=== PATIENT | female | born 1960 | race Caucasian/White ===

== ENCOUNTER 2019-11-09 15:01 | Inpatient (IN) | payer MEDICAID ==
[~2019-11-09] VITALS: Ht 152.4 cm; Wt 49.9 kg
[2019-11-09 15:01] VITALS: BP_SYST 110
--- NOTE | 2019-11-09 15:01 | NUR ---
Placed in room 07 . Placed on school bus monitor, blood pressure machine and pulse oximeter. To gown for exam. Side rails up.
--- NOTE | 2019-11-09 15:03 | NUR ---
Pt AAOx4 presents to ED via wheelchair into ED c/o weakness, abd pain, nausea, 4 episodes of vomiting x 1 hour prior to arrival. Pt able to follow commands, but is very weak. 1 episode of vomiting during assessment. Pt had eggs and onions prior to symptoms. Skin dry and warm, breathing even and unlabored. No other injuries/complaints per pt/noted. Will continue to monitor.
--- NOTE | 2019-11-09 15:09 | NUR ---
ER Dr. Booth at bedside examining patient.
[2019-11-09] MEDS ORDERED: NACL 0.9% 1,000 ML IV ONE (15:12)
[2019-11-09] MEDS ORDERED: ONDANSETRON HCL 4 MG/2 ML VIAL IVP ONE (15:15)
--- NOTE | 2019-11-09 15:39 | NUR ---
Pt taken to radiology via gurney in stable condition
[2019-11-09 15:44] LABS: HEMOGLOBIN 14.5 g/dL (12.0-16.0)
--- NOTE | 2019-11-09 15:45 | NUR ---
Pt returned from radiology via [place] in stable condition
[2019-11-09 15:50] LABS: HEMATOCRIT 43.2 % (36-48); MEAN CORPUSCULAR HEMOGLOBIN 30 pg (27-31); MEAN CORPUSCULAR HGB CONC 34 % (32-36); MEAN CORPUSCULAR VOLUME 89 fL (79.0-98.0); PLATELET COUNT (AUTO) 292 K/uL (130-430); RED BLOOD CELL COUNT(AUTO) 4.84 MIL/uL (4.2-6.2); RED CELL DISTRIBUTION WIDTH 12.1 % (9.0-15.0)
[2019-11-09 15:55] LABS: WHITE BLOOD COUNT (AUTO) 32.6 K/uL (4.8-10.8)
[2019-11-09] MEDS ORDERED: PIPERACILLIN/TAZO 3.375 GM in NS 50 ML IV ONE (16:00)
[2019-11-09 16:07] LABS: INR 0.9 (0.8-1.2); PROTHROMBIN TIME 9.4 SECS (9.5-12.5)
[2019-11-09 16:26] LABS: ANION GAP 12 (5-15); CALCIUM 9.5 mg/dL (8.4-11.0); CHLORIDE 98 mmol/L (98-107); CREATININE 0.94 mg/dL (0.55-1.30); GLUCOSE 215 mg/dL (70-99); SODIUM SERUM 135 mmol/L (136-145); UREA NITROGEN, BLOOD 22 mg/dL (8-21)
[2019-11-09 16:29] LABS: BILIRUBIN,URINE NEGATIVE (NEGATIVE); BLOOD, URINE 1+ (NEGATIVE); COLOR,URINE YELLOW (YELLOW); GLUCOSE,URINE NEGATIVE (NEGATIVE); KETONES,URINE 1+ (NEGATIVE); LEUKOCYTE ESTERASE ,URINE TRACE (NEGATIVE); NITRITE, URINE POSITIVE (NEGATIVE); PH,URINE 6.5 (5.0-8.0); PROTEIN URINE 2+ (NEGATIVE)
[2019-11-09] MEDS ORDERED: NACL 0.9% 2,000 ML IV ONE (16:30)
[2019-11-09 16:33] LABS: GFR AFRICAN AMERICAN 78 mL/min (>90); POTASSIUM 2.9 mmol/L (3.5-5.1)
[2019-11-09 16:41] LABS: ACETAMINOPHEN < 1 ug/mL (1-30); ALANINE AMINOTRANSFERASE 170 U/L (12-78); ALBUMIN 4.1 g/dL (3.4-4.8); ASPARTATE AMINOTRANSFERASE 305 U/L (10-37)
[2019-11-09 16:42] LABS: ALCOHOL, BLOOD < 3 mg/dL (<10)
[2019-11-09] MEDS ORDERED: MORPHINE 4 MG/ML INJ. SYRINGE IVP ONE (16:45)
[2019-11-09] MEDS ORDERED: KCL 40 mEq in 100 mL (PREMIX) 100 ML IV ONE (16:45)
[2019-11-09] MEDS ORDERED: PIPERACILLIN/TAZOBACTAM 3.375 GM/VIAL (ZOSYN) IV ONE (16:49)
[2019-11-09 16:57] LABS: BARBITURATE, URINE NEGATIVE (NEG <=200); BENZODIAZEPINE, URINE NEGATIVE (NEG <=150); CANNABINOID, URINE NEGATIVE (NEG <=50); COCAINE, URINE NEGATIVE (NEG <=150); METHAMPHETAMINES SCREEN,URINE NEGATIVE (NEG <=500); OPIATE, URINE NEGATIVE (NEG <=100); PHENCYCLIDINE SCREEN,URINE NEGATIVE (NEG <=25); UR TRICYCLIC ANTIDEPRESSANTS NEGATIVE (NEG <=300); URINE AMPHETAMINE NEGATIVE (NEG <=500); URINE METHADONE NEGATIVE (NEG <=200); URINE OXYCODONE SCREEN NEGATIVE (NEG <=100); URINE PROPOXYPHENE SCREEN NEGATIVE (NEG <=300)
--- NOTE | 2019-11-09 17:00 | NUR ---
Dr. Zhu notified Potassium level 2.9. Admit order changed to Telemetry.
[2019-11-09 17:05] LABS: AMYLASE 4576 U/L (0-100)
[2019-11-09 17:07] LABS: LIPASE > 45000 U/L (73-393)
--- NOTE | 2019-11-09 17:12 | NUR ---
40 mEq KCL unavailable in ED pyxis. Dr. Booth notified. Ordered changed to 20mEq KCL premix at 50mL/hr x 2.
[2019-11-09] MEDS ORDERED: KCL 20 mEq in 100 mL (PREMIX) 100 ML IV ONE (17:15)
[2019-11-09] MEDS ORDERED: KCL 20 mEq in 100 mL (PREMIX) 200 ML IV ONE (17:20)
[2019-11-09] MEDS ORDERED: fentaNYL CITRATE/PF 100 MCG/2 ML AMP IVP ONE (17:30)
[2019-11-09 17:37] LABS: BAND % (MANUAL) 4 % (0-6); BASOPHILS % (MANUAL) 0 % (0-2); EOSINOPHILS % (MANUAL) 0 % (0-7); LYMPHOCYTES % (MANUAL) 3 % (20-46); MONOCYTES % (MANUAL) 2 % (0-11)
[2019-11-09 17:44] LABS: CLARITY/URINE HAZY (CLEAR)
[2019-11-09 17:46] LABS: BACTERIA,URINE MANY /HPF (None Seen); RBC,URINE 0-3 /HPF (0-3)
--- NOTE | 2019-11-09 17:48 | NUR ---
CONSULTATION PAGED/CALLED Reason for Consultation: [] ACUTE PANCREATITIS Person Who was Notified: [] MONE Consulting Physician: [] DR GARCIA Hook Tender Specialty: [] GEN SURGEON Ordering Physician: [] DR Danisha HARRIS
--- NOTE | 2019-11-09 17:52 | NUR ---
CONSULTATION PAGED/CALLED Reason for Consultation: [] ACUTE PANCREATITIS Person Who was Notified: [] MONE Consulting Physician: [] DR Nitza PATTERSON Javascript Web Developer Specialty: [] GI Ordering Physician: [] DR Danisha HARRIS
--- NOTE | 2019-11-09 18:03 | NUR ---
ADMISSION NOTE Received patient from ER via pablo, received report from MARLENE SUN. Patient admitted with diagnosis of ACUTE PANCREATITIS. Patient oriented to hospital routine, call light, toileting and safety-patient verbalized understanding.
--- NOTE | 2019-11-09 18:10 | NUR ---
Patient will be admitted to care of Dr. Zhu. Admitted to Telemetry unit. Will go to room 103A. Belongings list completed. Complete and up to date summary report printed. SBAR report to be given at bedside with opportunity for questions.
[2019-11-09] MEDS ORDERED: ZOLPIDEM TARTRATE 5 MG TABLET PO PRN (18:15)
[2019-11-09] MEDS ORDERED: DOCUSATE SODIUM 100 MG CAPSULE PO PRN (18:15)
[2019-11-09] MEDS ORDERED: MORPHINE 2 MG/ML INJ. SYRINGE IVP PRN ×2 (18:15)
[2019-11-09] MEDS ORDERED: MAGNESIUM SULFATE 50 ML IV PRN (18:15)
[2019-11-09] MEDS ORDERED: LORazepam 2 MG/ML VIAL IVP PRN (18:15)
[2019-11-09] MEDS ORDERED: ACETAMINOPHEN 325 MG TABLET PO PRN (18:15)
[2019-11-09] MEDS ORDERED: MUPIROCIN 2% TOPICAL OINTMENT 22 GM NS PRN (18:15)
[2019-11-09] MEDS: PIPERACILLIN/TAZO 3.375/DEX-IS 50 ML IV SCH (18:15)
[2019-11-09 18:18] VITALS: BP_SYST 122
--- NOTE | 2019-11-09 18:21 | NUR ---
CONSULTATION PAGED/CALLED Reason for Consultation: [] SEPSIS Person Who was Notified: [] MONE Consulting Physician: [] DR KITCHEN Apprentice Instrument Technician Specialty: [] ID Ordering Physician: [] DR Danisha HARRIS
[2019-11-09] MEDS ORDERED: DEXTROSE 50% JECT 50 ML DISP.SYRIN IVP PRN (18:30)
--- NOTE | 2019-11-09 18:30 | NUR ---
Pain Patient with severe abdominal pain , Dr. Zhu , Dilaudid 2 mg IV push given slowly , with IV fluid infusing well , safety/fall precaution initiated , will monitor.
[2019-11-09] MEDS ORDERED: HYDROmorphone 2 MG/ML VIAL ONE (18:47)
[2019-11-09] MEDS ORDERED: ENAL10TA PO (18:58)
[2019-11-09] MEDS ORDERED: OMEP20CA11 PO (18:58)
[2019-11-09 19:00] VITALS: BP_SYST 148
--- NOTE | 2019-11-09 19:15 | NUR ---
change of shift.pt.is new admit;11/09/19.pt.presents pancreatitis/cholelithiasis per studies;ct-abd/pelvis.pt.presented k+level low. k+rider;40meq administration is in progress.general status stable.respiratory status stable;unlabored.language barrier extant;urdu pt's primary language;i am to attend to the pt;urdu.call light/telephone w/in reach of the pt.
[2019-11-09 20:00] VITALS: BP_SYST 148
--- NOTE | 2019-11-09 20:30 | NUR ---
i have assessed the blood glucose;value:264mg/dl.the pt's had inquired for the reason to assess the blood glucose; pt.presents no prior hx ;diabetes. it had been noted the per the chemistry that the blood glucose is elevated;nsg to continue to assess the blood glucose:ac/hs. Addendum: 11/10/19 at 0355 by Lonnie Modi RN ;surgeon present.has conferred w/the pt's /dtr.pt is possible surgery pt.but noted the elevated enzymes levels; pancreatitis; provided the indication to hold surgery:2/t pancreatitis;elevated wbc,amylase.liapase levels.must wait for the inflammation to resolve.i have provided further indication to translation;zambian. understanding satisfactory.
--- NOTE | 2019-11-09 21:00 | NUR ---
2100pmedication administered.i have provided the literature;indication heparin;family reviewed the literature provider the consent to administered the heparin.i have assisted the pt.to the bsc.i have measured,cleaned, placed the bsc w/in access of the pt.
[2019-11-09] MEDS: D5NS 1,000 ML IV SCH (21:43)
[2019-11-09] MEDS: HEPARIN SODIUM,PORCINE 5000 UNITS/ML VIAL SUBCUT SCH (21:45)
--- NOTE | 2019-11-09 22:00 | NUR ---
pt.assessed.pt.presents quiescent affect;calm,somnolent.iv aces intact patent iv fluids infusing.i have initiated the administration of the maintance iv fluids.general status stable.respiratory status stable;unlabored.pt.capable to reposition self.call light/telephone placed w/in reach of the pt.
[2019-11-09] MEDS: INSULIN LISPRO SLIDING SCALE 100 UNITS/ML VIAL (humaLOG) SUBCUT PRN (22:06)
--- NOTE | 2019-11-10 | NUR ---
pt.assessed.v/s assessed;values w/in normal limits.no c/o pain,nausea.pt.capable to reposition self.i have administered the initial zosyn;abx;ivpb midnight dose.general status stable.respiratory status stable;unlabored.call light/telephone w/in reach of the pt.
[2019-11-10] MEDS ORDERED: PIPERACILLIN/TAZOBACTAM 3.375 GM/VIAL (ZOSYN) IV ONE (00:25)
[2019-11-10 00:34] VITALS: BP_SYST 131
[2019-11-10] MEDS: PIPERACILLIN/TAZO 3.375/DEX-IS 50 ML IV SCH ×5 (00:44→23:58)
--- NOTE | 2019-11-10 02:00 | NUR ---
pt.assessed.pt.assessed for cleanliness.pt.capable to reposition self.pt.presents quiescent affect;calm,somnolent.iv fluids infusing. general status stable. respiratory status stable;unlabored.call light/telephone placed w/in reach of the pt.
--- NOTE | 2019-11-10 04:00 | NUR ---
pt.assessed pt.had requested medication pain,nausea.i have administered dilaudid;2mg ivp.to re-assess the efficacy of the pain medication per pain mgx protocol.i have administered zofran;4mg ivp;to re-assess the efficacy of the zofran. no additional requests@this hour. general status stable.respiratory status stable;unaloboredo2-sat%=96%.call light/telephone placed w/in reach of the pt.
[2019-11-10] MEDS: HYDROmorphone 2 MG/ML VIAL IVP PRN ×2 (04:01→13:35)
[2019-11-10] MEDS: ONDANSETRON HCL 4 MG/2 ML VIAL IVP PRN (04:02)
[2019-11-10] MEDS: INSULIN LISPRO SLIDING SCALE 100 UNITS/ML VIAL (humaLOG) SUBCUT PRN ×4 (05:55→22:05)
--- NOTE | 2019-11-10 06:44 | NUR ---
pt.assessed.blood glucose assessed;value:232mg/dl.i have administered:insulin:regular:4-units.i have administered zosyn:abx;ivpb:0600a dose.no c/o pian,nausea.call light/telpher placed w/in reach of the pt.
--- NOTE | 2019-11-10 06:50 | NUR ---
Nutrition Update Tyler Scale 17 noted. Pt admitted for Acute Pancreatitis Diet: NPO BMI: 21.7 kg/m2 RD to follow per nutrition care standards.
[2019-11-10] MEDS: D5NS 1,000 ML IV SCH ×2 (07:00→09:59)
--- NOTE | 2019-11-10 07:40 | NUR ---
OPENING NOTE Patient resting in the bed with eye closed. No acute distress. Skin warm and dry to touch. IV intact to left hand, no redness, no swelling, no drainage. On D5 NS at 100ml/hr, infusing well. Safety measure maintained. Call light within reached. Bed locked in low position, side rails up, bed alarm on. Will continue to monitor.
[2019-11-10 07:45] VITALS: BP_SYST 123
[2019-11-10 07:49] LABS: HEMATOCRIT 45.6 % (36-48); HEMOGLOBIN 15.4 g/dL (12.0-16.0); LYMPHOCYTES # (AUTO) 1.5 K/uL (1.0-5.5); LYMPHOCYTES % (AUTO) 7.1 % (20.5-51.5); MEAN CORPUSCULAR HEMOGLOBIN 30 pg (27-31); MEAN CORPUSCULAR HGB CONC 34 % (32-36); MEAN CORPUSCULAR VOLUME 89 fL (79.0-98.0); MONOCYTES # (AUTO) 1.4 K/uL (0.0-1.0); MONOCYTES % (AUTO) 6.9 % (1.7-9.3); NEUTROPHILS # (AUTO) 17.9 K/uL (1.8-7.7); PLATELET COUNT (AUTO) 250 K/uL (130-430); RED BLOOD CELL COUNT(AUTO) 5.11 MIL/uL (4.2-6.2); RED CELL DISTRIBUTION WIDTH 12.7 % (9.0-15.0); WHITE BLOOD COUNT (AUTO) 20.9 K/uL (4.8-10.8)
[2019-11-10 08:10] LABS: ALBUMIN 2.9 g/dL (3.4-4.8); BILIRUBIN,DIRECT 0.8 mg/dL (0.0-0.3); CALCIUM 8.2 mg/dL (8.4-11.0); CREATININE 0.95 mg/dL (0.55-1.30); POTASSIUM 4.6 mmol/L (3.5-5.1); TOTAL BILIRUBIN 1.6 mg/dL (0.0-1.0)
--- NOTE | 2019-11-10 09:06 | NUR ---
SEEN AND EXAMINED BY DALI MELGAR Per Dr. Dowd continue to keep the patient NPO, ice chip is okay.
--- NOTE | 2019-11-10 09:47 | NUR ---
SEEN AND EXAMINED BY DR. HARRIS [facility]. Per Dr. Harris, patient is diabetic, needs to give insulin per sliding scale even the patient is NPO.
[2019-11-10] MEDS: HEPARIN SODIUM,PORCINE 5000 UNITS/ML VIAL SUBCUT SCH ×2 (09:52→21:55)
--- NOTE | 2019-11-10 11:19 | NUR ---
OFF UNIT TO MRI, MRCP VIA WHEELCHAIR IN STABLE CONDITION.
--- NOTE | 2019-11-10 12:18 | NUR ---
BACK TO UNIT FROM RADIOLOGY DEPARTMENT IN STABLE CONDITION VIA WHEELCHAIR.
[2019-11-10 12:25] VITALS: BP_SYST 112
--- NOTE | 2019-11-10 12:27 | NUR ---
SEEN AND EXAMINED BY NICOL BOB.
[2019-11-10] MEDS: GENTAMICIN 100 mg/50 mL NS 50 ML IV SCH ×2 (13:27→20:03)
--- NOTE | 2019-11-10 14:25 | NUR ---
ROUND Patient resting in the bed with eye closed. No acute distress. On O2 2L/min via NC. IV intact, IVF infusing well. Daughter at bedside. Safety measure maintained. Call light within reached. Bed locked in low position, side rails up. Continue to monitor.
[2019-11-10 16:00] VITALS: BP_SYST 126
--- NOTE | 2019-11-10 16:33 | NUR ---
BATHROOM Ambulated to bathroom with assistance. No acute distress. Assisted back to bed. Continue on O2 via NC. Safety measure maintained. Call light within reached. Bed locked in low position, side rails up. Continue to monitor.
--- NOTE | 2019-11-10 18:50 | NUR ---
CLOSING NOTE Patient resting in the bed. No acute distress. No c/o pain. Skin warm and dry to touch. IV intact to left hand, no redness, no swelling, no drainage. On D5 NS at 100ml/hr, infusing well. All needs met. Family at bedside. Safety measure maintained. Call light within reached. Bed locked in low position, side rails up, bed alarm on. Will endorse to night nurse.
[2019-11-10] MEDS: MORPHINE 2 MG/ML INJ. SYRINGE IVP PRN (19:59)
[2019-11-10 20:00] VITALS: BP_SYST 128
--- NOTE | 2019-11-10 20:00 | NUR ---
NOTES: pt. medicated with Morphine IV for c/o abdominal pain. no nausea nor vomiting noted. family at bedside. pt. repositioned self for comfort. IVF infusing via rt. hand. pt. speaks Latvian with very little vietnamese. moves all extremities well. color television console monitor shows sinus tach. another IV site on left hand, IV lock.uses BSC. instructed to call nurse for help.
--- NOTE | 2019-11-10 21:00 | NUR ---
NOTES; pt. family still at bedside. pt. resting, dozing on and off.
--- NOTE | 2019-11-10 22:00 | NUR ---
NOTES: BS checked 168 with sliding scale coverage. pt. needs attended.
[2019-11-10] MEDS ORDERED: LR 500 ML IV ONE (22:15)
[2019-11-11 00:20] VITALS: BP_SYST 128
[2019-11-11] MEDS: HYDROmorphone 2 MG/ML VIAL IVP PRN ×3 (00:20→17:30)
--- NOTE | 2019-11-11 00:20 | NUR ---
NOTES: pt. still awake, c/o abdominal pain , IV Dilaudid pain scale 7/10 given. pt. been turning to her sides. call light within reach. IV LR 500 cc IV x1 infusing per Dr. Dowd. remains sinus tach.
--- NOTE | 2019-11-11 02:30 | NUR ---
NOTes; pt. sleeping at this time. condition observed. remains sinus tach.
[2019-11-11] MEDS: D5NS 1,000 ML IV SCH (03:44)
--- NOTE | 2019-11-11 05:00 | NUR ---
NOTES: been sleeping, no pain noted at this time. IVF infusing. continue to monitor.
[2019-11-11] MEDS: PIPERACILLIN/TAZO 3.375/DEX-IS 50 ML IV SCH ×4 (06:06→23:51)
--- NOTE | 2019-11-11 06:55 | NUR ---
CLOSING NOTES; pt. awakened. BS checked 169 with sliding scale coverage. IVF continuous.for further care and assistance. call light within [facility].
--- NOTE | 2019-11-11 07:15 | NUR ---
OPENING NOTES PT AWAKE, ALERT, AND ORIENTED. NONLABORED BREATHING NOTED, RECEIVING OXYGEN VIA NASAL CANNULA AT 2LPM. IV LINES INTACT AND PATENT, NO SIGNS OF INFILTRATION NOTED, FLUIDS RUNNING ORDERED PER MD, TOLERATING WELL. PT NPO. HOB ELEVATED. NO ACUTE DISTRESS NOTED. PT DENIES PAIN AT THIS TIME. ALL NEEDS MET. CALL LIGHT IN REACH. BED LOCKED AND IN LOWEST POSITION. FALL AND ASPIRATION PRECAUTIONS IN PLACE. CONTINUE TO MONITOR.
[2019-11-11 07:17] LABS: HEMATOCRIT 38.5 % (36-48); HEMOGLOBIN 12.7 g/dL (12.0-16.0); MEAN CORPUSCULAR HEMOGLOBIN 30 pg (27-31); MEAN CORPUSCULAR HGB CONC 33 % (32-36); MEAN CORPUSCULAR VOLUME 91 fL (79.0-98.0); PLATELET COUNT (AUTO) 190 K/uL (130-430); RED BLOOD CELL COUNT(AUTO) 4.24 MIL/uL (4.2-6.2); RED CELL DISTRIBUTION WIDTH 12.7 % (9.0-15.0)
[2019-11-11 07:25] LABS: CALCIUM 8.3 mg/dL (8.4-11.0); CREATININE 0.81 mg/dL (0.55-1.30); POTASSIUM 4.4 mmol/L (3.5-5.1)
--- NOTE | 2019-11-11 07:38 | NUR ---
CRITICAL LABS RECEIVED CRITICAL LABS. REPORTED TO DR. HARRIS, NO NEW ORDERS RECEIVED, CONTINUE TO MONITOR.
[2019-11-11 08:00] VITALS: BP_SYST 132
[2019-11-11 08:10] LABS: WHITE BLOOD COUNT (AUTO) 33.9 K/uL (4.8-10.8)
--- NOTE | 2019-11-11 08:10 | NUR ---
CRITICAL LABS RECEIVED CRITICAL LABS, REPORTED TO DR. HARRIS, RECEIVED NO NEW ORDERS. CONTINUE TO MONITOR.
[2019-11-11 08:53] LABS: ATYPICAL LYMPHOCYTES % 0 % (0-0); BAND % (MANUAL) 5 % (0-6); BASOPHILS % (MANUAL) 0 % (0-2); EOSINOPHILS % (MANUAL) 0 % (0-7); LYMPHOCYTES % (MANUAL) 4 % (20-46); MONOCYTES % (MANUAL) 7 % (0-11)
--- NOTE | 2019-11-11 10:00 | NUR ---
SEEN BY DR. PATTERSON AT BEDSIDE.
[2019-11-11] MEDS: GENTAMICIN 100 mg/50 mL NS 50 ML IV SCH (10:11)
[2019-11-11] MEDS: HEPARIN SODIUM,PORCINE 5000 UNITS/ML VIAL SUBCUT SCH ×2 (10:24→21:24)
--- NOTE | 2019-11-11 10:24 | NUR ---
ROUTINE MEDS ROUTINE MEDS ADMINISTERED ORDERED PER MD, EDUCATION GIVEN, TOLERATED WELL. NO ACUTE DISTRESS NOTED. ALL NEEDS MET. CALL LIGHT IN REACH. FALL AND ASPIRATION PRECAUTIONS IN PLACE. CONTINUE TO MONITOR.
[2019-11-11] MEDS: LR 1,000 ML IV SCH ×3 (10:50→23:53)
--- NOTE | 2019-11-11 12:00 | NUR ---
ROUNDS PT RESTING IN BED, CHEST RISE AND FALL NOTED. NONLABORED BREATHING NOTED, RECEIVING OXYGEN ORDERED PER MD VIA NASAL CANNULA. ALL NEEDS MET. CALL LIGHT IN REACH. CONTINUE TO MONITOR.
--- NOTE | 2019-11-11 12:10 | NUR ---
SPOKE TO DR. PATTERSON REGARDING MRCP, NO NEW ORDERS RECEIVED. F/U WITH DR. GARCIA, WILL CONTACT.
[2019-11-11 12:52] VITALS: BP_SYST 132
[2019-11-11 13:00] VITALS: BP_SYST 130
--- NOTE | 2019-11-11 14:00 | NUR ---
ASSISTED PT TO BEDSIDE COMMODE, TOLERATED WELL. NO ACUTE DISTRESS NOTED. ALL NEEDS MET. CALL LIGHT IN REACH. CONTINUE TO MONITOR.
--- NOTE | 2019-11-11 16:00 | NUR ---
ROUNDS PT AWAKE, ALERT, AND ORIENTED. NO ACUTE DISTRESS NOTED. ALL NEEDS MET. CALL LIGHT IN REACH. HOB ELEVATED. CONTINUE TO MONITOR.
[2019-11-11 17:12] VITALS: BP_SYST 146
--- NOTE | 2019-11-11 17:32 | NUR ---
ACCUCHECK ACCUCHECK DONE. DAUGHTER AT BEDSIDE. EDUCATION GIVEN, TOLERATED WELL. NO ACUTE DISTRESS NOTED. RESULT 113 MG/DL. ALL NEEDS MET. CALL LIGHT IN REACH. CONTINUE TO MONITOR.
--- NOTE | 2019-11-11 18:41 | NUR ---
CLOSING NOTES PT AWAKE, ALERT, AND ORIENTED. FAMILY AT BEDSIDE. IV LINES INTACT AND PATENT, NO SIGNS OF INFILTRATION NOTED. PT RECEIVING OXYGEN ORDERED PER MD VIA NASAL CANNULA. NO ACUTE DISTRESS NOTED. PT DENIES PAIN AT THIS TIME. ALL NEEDS MET. CALL LIGHT IN REACH. FALL AND ASPIRATION PRECAUTIONS IN PLACE. WILL ENDORSE TO NOC NURSE.
--- NOTE | 2019-11-11 19:20 | NUR ---
CHANGE OF SHIFT; pt. resting when received, family visiting at bedside. IVF infusing. no complaints of pain at this time. call light within reach. HOB elevated. will reassess later.
[2019-11-11 20:00] LABS: ALBUMIN 2.2 g/dL (3.4-4.8); BILIRUBIN,DIRECT 0.4 mg/dL (0.0-0.3); TOTAL BILIRUBIN 1.3 mg/dL (0.0-1.0)
[2019-11-11] MEDS ORDERED: GENTAMICIN 120 mg/ NS 100 mL IVPB IV SCH (20:00)
--- NOTE | 2019-11-11 20:00 | NUR ---
NOTES: VS checked. HR 112. O2 on @ 2l/nc. instructed on deep breathing. still kept NPO except with some ice chips. been using BSC.able to turn to sides and repositioned self. cardiac pattern shows sinus tach.
[2019-11-11 20:15] VITALS: BP_SYST 127
[2019-11-11] MEDS: GENTAMICIN 120 mg/100 mL NS 100 ML IV SCH (20:16)
--- NOTE | 2019-11-11 21:00 | NUR ---
NOTES: BS checked 112. IV antibiotic due infused. pt. needs attended. off O@ rechecked O2 sat 95%, will recheck again later, kept on room air, instructed on deep breathing
[2019-11-11] MEDS: metroNIDAZOLE 500 mg/NS 100 ML IV SCH (21:12)
--- NOTE | 2019-11-11 23:00 | NUR ---
NOTES: been dozing on and off. pt. needs attended. call light within reach.
[2019-11-12] VITALS (7 sets, daily range): BP systolic 125–149
[2019-11-12] MEDS: HYDROmorphone 2 MG/ML VIAL IVP PRN ×4 (00:51→20:36)
--- NOTE | 2019-11-12 00:51 | NUR ---
NOTES: pt. medicated with IV Dilaudid for c/o abdominal pain. repositioned self for comfort.
--- NOTE | 2019-11-12 02:30 | NUR ---
NOTES: noted relief of pain, pt. asleep. condition observed.
[2019-11-12] MEDS: LR 1,000 ML IV SCH (03:56)
--- NOTE | 2019-11-12 04:17 | NUR ---
NOTES: made rounds, pt. still sleeping. continue to monitor. IVF continuous @ 200 cc/hr.
[2019-11-12] MEDS: PIPERACILLIN/TAZO 3.375/DEX-IS 50 ML IV SCH ×4 (05:20→23:36)
--- NOTE | 2019-11-12 05:45 | NUR ---
NOTES: Bs checked 96. no further complaints of pain. IVF continuous @ 200 cc/hr of LR via left forearm. pt. needs attended. on room air, denies any shortness of breath. call light within reach. on fall risk precautions due to weakness.
--- NOTE | 2019-11-12 06:42 | NUR ---
CLOSING NOTES; pt. still asleep. IVF continuous @ 200 cc/hr of LR via left arm. kept NPO. no nausea nor vomiting. cardiac pattern on sinus tach. needs attended. for further care and assistance. will endorse to day shift. on fall risk precautions. call light within reach.
[2019-11-12 07:07] LABS: BASOPHILS % (AUTO) 0.1 % (0.0-2.0); HEMATOCRIT 29.3 % (36-48); LYMPHOCYTES # (AUTO) 1.1 K/uL (1.0-5.5); LYMPHOCYTES % (AUTO) 4.6 % (20.5-51.5); MEAN CORPUSCULAR HEMOGLOBIN 31 pg (27-31); MEAN CORPUSCULAR HGB CONC 34 % (32-36); MEAN CORPUSCULAR VOLUME 90 fL (79.0-98.0); MONOCYTES # (AUTO) 1.8 K/uL (0.0-1.0); MONOCYTES % (AUTO) 7.5 % (1.7-9.3); NEUTROPHILS # (AUTO) 21.5 K/uL (1.8-7.7); NEUTROPHILS % (AUTO) 87.8 % (40.0-70.0); PLATELET COUNT (AUTO) 140 K/uL (130-430); RED BLOOD CELL COUNT(AUTO) 3.27 MIL/uL (4.2-6.2); RED CELL DISTRIBUTION WIDTH 12.7 % (9.0-15.0); WHITE BLOOD COUNT (AUTO) 24.6 K/uL (4.8-10.8)
--- NOTE | 2019-11-12 07:15 | NUR ---
OPENING NOTES PT AWAKE, ALERT, AND ORIENTED. NONLABORED BREATHING NOTED ON ROOM AIR, TOLERATING WELL. IV LINES INTACT AND PATENT, NO SIGNS OF INFILTRATION NOTED, FLUIDS RUNNING ORDERED PER MD, TOLERATING WELL. PT NPO. HOB ELEVATED. NO ACUTE DISTRESS NOTED. PT DENIES PAIN AT THIS TIME. ALL NEEDS MET. CALL LIGHT IN REACH. BED LOCKED AND IN LOWEST POSITION. FALL AND ASPIRATION PRECAUTIONS IN PLACE. CONTINUE TO MONITOR.
[2019-11-12 07:43] LABS: CALCIUM 7.9 mg/dL (8.4-11.0); CREATININE 0.56 mg/dL (0.55-1.30); POTASSIUM 3.3 mmol/L (3.5-5.1)
[2019-11-12] MEDS: GENTAMICIN 120 mg/100 mL NS 100 ML IV SCH ×2 (08:16→20:38)
[2019-11-12] MEDS: HEPARIN SODIUM,PORCINE 5000 UNITS/ML VIAL SUBCUT SCH ×2 (08:19→21:00)
--- NOTE | 2019-11-12 08:19 | NUR ---
ROUTINE MEDS ROUTINE MEDS ADMINISTERED ORDERED PER MD, EDUCATION GIVEN,, TOLERATED WELL. NO ACUTE DISTRESS NOTED. ALL NEEDS MET. CALL LIGHT IN REACH. CONTINUE TO MONITOR.
--- NOTE | 2019-11-12 09:00 | NUR ---
SEEN BY DR. PATTERSON AT BEDSIDE
[2019-11-12] MEDS: metroNIDAZOLE 500 mg/NS 100 ML IV SCH ×2 (10:18→21:31)
[2019-11-12] MEDS: D5NS 1,000 ML IV SCH ×2 (10:19→19:45)
--- NOTE | 2019-11-12 10:19 | NUR ---
ROUTINE MEDS ROUTINE MEDS ADMINISTERED ORDERED PER MD, EDUCATION GIVEN, TOLERATED WELL. NO ACUTE DISTRESS NOTED. ALL NEEDS MET. CALL LIGHT IN REACH. CONTINUE TO MONITOR.
[2019-11-12] MEDS ORDERED: POTASSIUM CHLORIDE 40 MEQ, LIDOCAINE JECT 2% PF 100 MG 50 MG in NS 250 ML IV ONE (11:30)
--- NOTE | 2019-11-12 12:30 | NUR ---
SEEN BY DR. GARCIA AT BEDSIDE. Addendum: 11/12/19 at 1541 by Jeni Salazar RN GAVE BILL EDUCATION Addendum: 11/12/19 at 1830 by Jeni Salazar RN FAMILY AT BEDSIDE. PT STATED SHE UNDERSTOOD AND RECEIVED CONSENT.
[2019-11-12 13:06] LABS: BASOPHILS % (AUTO) 0.1 % (0.0-2.0); HEMATOCRIT 30.2 % (36-48); HEMOGLOBIN 10.2 g/dL (12.0-16.0); LYMPHOCYTES # (AUTO) 1.2 K/uL (1.0-5.5); LYMPHOCYTES % (AUTO) 5.2 % (20.5-51.5); MEAN CORPUSCULAR HEMOGLOBIN 30 pg (27-31); MEAN CORPUSCULAR HGB CONC 34 % (32-36); MEAN CORPUSCULAR VOLUME 90 fL (79.0-98.0); MONOCYTES # (AUTO) 1.5 K/uL (0.0-1.0); MONOCYTES % (AUTO) 6.6 % (1.7-9.3); NEUTROPHILS # (AUTO) 20.6 K/uL (1.8-7.7); NEUTROPHILS % (AUTO) 88.1 % (40.0-70.0); PLATELET COUNT (AUTO) 142 K/uL (130-430); RED BLOOD CELL COUNT(AUTO) 3.38 MIL/uL (4.2-6.2); RED CELL DISTRIBUTION WIDTH 12.8 % (9.0-15.0); WHITE BLOOD COUNT (AUTO) 23.3 K/uL (4.8-10.8)
[2019-11-12 13:08] LABS: CREATININE 0.66 mg/dL (0.55-1.30); POTASSIUM 3.1 mmol/L (3.5-5.1)
[2019-11-12 13:11] LABS: INR 1.1 (0.8-1.2); PROTHROMBIN TIME 10.6 SECS (9.5-12.5)
[2019-11-12 13:12] LABS: ALBUMIN 2.2 g/dL (3.4-4.8); TOTAL BILIRUBIN 1.3 mg/dL (0.0-1.0)
--- NOTE | 2019-11-12 14:28 | NUR ---
PRN MEDS PRN MEDS ADMINISTERED ORDERED PER MD, EDUCATION GIVEN, TOLERATED WELL. ALL NEEDS MET. CALL LIGHT IN REACH. CONTINUE TO MONITOR
--- NOTE | 2019-11-12 16:38 | NUR ---
Dietitian Recommendations * Consider advance diet if/when medically appropriate LP, RD Please refer to Nutrition Assessment for details. Addendum: 11/12/19 at 1639 by [address]ina De La Garza RD Amended: Links added.
--- NOTE | 2019-11-12 17:43 | NUR ---
ROUTINE MEDS ROUTINE MEDS ADMINISTERED ORDERED PER MD, EDUCATION GIVEN, TOLERATED WELL. NO ACUTE DISTRESS NOTED. ALL NEEDS MET. CALL LIGHT IN REACH. CONTINUE TO MONITOR.
--- NOTE | 2019-11-12 17:45 | NUR ---
SPOKE TO DR. PATTERSON, UPDATED DR. PATTERSON ON DR. GARCIA'S PLANS OF SURGERY AND UPDATED ON LAB VALUES.
--- NOTE | 2019-11-12 18:31 | NUR ---
CLOSING NOTES PT RESTING IN BED. CHEST RISE AND FALL NOTED. NONLABORED BREATHING ON ROOM AIR. FAMILY AT BEDSIDE. IV LINE INTACT AND PATENT ON LEFT UPPER ARM, NO SIGNS OF INFILTRATION NOTED. NO ACUTE DISTRESS NOTED. PT DENIES PAIN AT THIS TIME. ALL NEEDS MET. CALL LIGHT IN REACH. FALL AND ASPIRATION PRECAUTIONS IN PLACE. WILL ENDORSE TO NOC NURSE.
--- NOTE | 2019-11-12 20:00 | NUR ---
Pt is fully awake and alert, resting quietly in bed. No c/o pain or discomfort and no acute distress noted. IVF of D5NS is infusing well in LFA at 100ml/hr without any signs of infiltration. Pt was instructed on nothing by mouth and pt verbalized understanding. Skin is warm and dry to touch. No signs or symptoms of hypoglycemia or hyperglycemia noted. Fall and safety precautions are in place.
--- NOTE | 2019-11-12 20:36 | NUR ---
Dilaudid 2mg was given IV for c/o 04/02 abdominal pain. IVF is infusing well in LFA. Fall and safety precautions are in place. Pt instructed to call for assistance before getting out of bed if she feels dizzy or drowsy and pt verbalized understanding. Fall and safety precautions are in place.
--- NOTE | 2019-11-12 21:32 | NUR ---
Accucheck 120 and no Insulin coverage needed. Skin remains warm and dry to touch. Fall and safety precautions are in place.
--- NOTE | 2019-11-12 23:30 | NUR ---
Pt is resting comfortably in bed. IVF is infusing well in LFA. Fall and safety precautions are in place.
[2019-11-13] VITALS: BP_SYST 132
--- NOTE | 2019-11-13 01:30 | NUR ---
Pt is sleeping without any distress noted. IVF is infusing well in LFA. Fall and safety precautions are in place.
[2019-11-13] MEDS: HYDROmorphone 2 MG/ML VIAL IVP PRN ×2 (04:19→20:08)
[2019-11-13] MEDS: D5NS 1,000 ML IV SCH ×2 (04:19→17:00)
--- NOTE | 2019-11-13 04:19 | NUR ---
Dilaudid 2mg was given IV for c/o 07/03 abdominal pain. IVF is infusing well in LFA. Fall and safety precautions are in place. Pt instructed to call for assistance before getting out of bed if she feels dizzy or drowsy and pt verbalized understanding. Fall and safety precautions are in place.
[2019-11-13] MEDS: PIPERACILLIN/TAZO 3.375/DEX-IS 50 ML IV SCH ×4 (05:33→23:03)
--- NOTE | 2019-11-13 06:30 | NUR ---
Pt is awake and resting comfortably in bed. All pt's needs were attended to. Accucheck 156 this AM and pt refused Insulin coverage. Pt stated she never took Insulin in her life and she will wait to see what her next blood sugar is before deciding on taking Insulin. Skin remains warm and dry to touch. IVF of D5NS is infusing well in LFA at 100ml/hr without any signs of infiltration. Pt remains NPO for surgery today. Fall and safety precautions are in place. Will endorse to day shift nurse.
[2019-11-13 07:16] LABS: BASOPHILS % (AUTO) 0.1 % (0.0-2.0); HEMATOCRIT 25.8 % (36-48); HEMOGLOBIN 8.7 g/dL (12.0-16.0); LYMPHOCYTES # (AUTO) 1.4 K/uL (1.0-5.5); LYMPHOCYTES % (AUTO) 7.4 % (20.5-51.5); MEAN CORPUSCULAR HEMOGLOBIN 30 pg (27-31); MEAN CORPUSCULAR HGB CONC 34 % (32-36); MEAN CORPUSCULAR VOLUME 90 fL (79.0-98.0); MONOCYTES # (AUTO) 1.5 K/uL (0.0-1.0); MONOCYTES % (AUTO) 8.1 % (1.7-9.3); NEUTROPHILS % (AUTO) 84.4 % (40.0-70.0); PLATELET COUNT (AUTO) 143 K/uL (130-430); RED BLOOD CELL COUNT(AUTO) 2.88 MIL/uL (4.2-6.2); RED CELL DISTRIBUTION WIDTH 12.7 % (9.0-15.0); WHITE BLOOD COUNT (AUTO) 18.9 K/uL (4.8-10.8)
[2019-11-13 07:30] LABS: CALCIUM 7.8 mg/dL (8.4-11.0); CREATININE 0.56 mg/dL (0.55-1.30); POTASSIUM 3.1 mmol/L (3.5-5.1)
[2019-11-13] MEDS: GENTAMICIN 120 mg/100 mL NS 100 ML IV SCH (07:37)
[2019-11-13] MEDS: HEPARIN SODIUM,PORCINE 5000 UNITS/ML VIAL SUBCUT SCH ×2 (07:40→20:54)
--- NOTE | 2019-11-13 08:00 | NUR ---
RN INITIAL NOTES RECEIVED PATIENT IN BED , RESP EVEN AND UNLABORED ,NO DISTRESS , MAINTAINED NPO FOR SURGERY TODAY THIS 4 PM ;, PATIENT AMBULATORY AND SAFETY ENSURED , GENTAMYCIN IV PEAK AND TROUGH ORDERED , PHARMACIST CELESTINO SAID TO HANG AND TO SHE WILL FOLLOW UP WITH THE PEAK AND TROUGH, PATIENT EXPLAINED PLAN OF CARE
[2019-11-13 08:15] VITALS: BP_SYST 135
[2019-11-13] MEDS: metroNIDAZOLE 500 mg/NS 100 ML IV SCH ×2 (09:08→20:49)
--- NOTE | 2019-11-13 10:42 | NUR ---
DR KIMBERLY SANCHEZ RETURNED CALL INFORMED PATIENT NPO BUT PATIENT D/T SURGERY SCHEDULED THIS 4 PM , ORDERED KRIDER WITH LIDOCAINE , ORDER NOTED AND WILL START MEDS ONCE AVAIL
[2019-11-13] MEDS ORDERED: POTASSIUM CHLORIDE 40 MEQ, LIDOCAINE JECT 2% PF 100 MG 50 MG in NS 250 ML IV ONE (11:00)
[2019-11-13] MEDS: MORPHINE 2 MG/ML INJ. SYRINGE IVP PRN (11:47)
--- NOTE | 2019-11-13 12:00 | NUR ---
ROUNDS PATIENT NOT IN ANY DISTRESS , GIVEN PAIN MEDS AND TOLERATED
--- NOTE | 2019-11-13 14:00 | NUR ---
ROUNDS ASLEEP FAMILY AT BEDSIDE PATIENT WITH FREQUENCY GOING THE BR D/T LOOSE STOOL 2 SMALL AMOUNT , EXPLAINED TO PATIENT PATIENT ON IV ATB ,
[2019-11-13] MEDS: ONDANSETRON HCL 4 MG/2 ML VIAL IVP PRN (15:32)
[2019-11-13] MEDS ORDERED: fentaNYL CITRATE/PF 100 MCG/2 ML AMP IVP PRN ×2 (16:30)
[2019-11-13] MEDS ORDERED: ONDANSETRON HCL 4 MG/2 ML VIAL IVP PRN ×2 (16:30→18:15)
[2019-11-13 16:36] VITALS: BP_SYST 132
--- NOTE | 2019-11-13 16:45 | NUR ---
OFF TO SURGERY PATIENT TAKEN TO SURGERY BY STAFF , ALERT AWAKE AND VERBAL NO DISTRESS, ANXIOUS OF THE SURGERY ADVISED PATIENT AND FAMILY TO SPEAK AND ASK SURGEON AND ANESTHESIA FOR THEIR CONCERN BEFORE THE SURGERY
[2019-11-13] MEDS: CEFAZOLIN 2 GM IVPB PREMIX 50 ML IV SCH (18:15)
[2019-11-13] MEDS ORDERED: HYDROmorphone 1 MG INJ. 1 MG/ML AMPUL IVP PRN (18:15)
[2019-11-13] MEDS ORDERED: ACETAMINOPHEN 325 MG TABLET PO PRN (18:15)
[2019-11-13] MEDS ORDERED: HYDROcodone/ACETAMIN 5-325 MG TAB (NORCO/ VICODIN) PO PRN (18:15)
[2019-11-13] MEDS ORDERED: PROPOFOL 200MG/ 20ML VIAL (DIPRIVAN) IV ONE (18:30)
[2019-11-13] MEDS ORDERED: BUPIVACAINE /EPINEPHRINE/PF 0.25% 30 ML VIAL INJ ONE (18:30)
[2019-11-13] MEDS ORDERED: fentaNYL CITRATE/PF 100 MCG/2 ML AMP ONE (18:30)
[2019-11-13] MEDS ORDERED: PHENYLEPHRINE HCL 10 MG/ML VIAL (NEOSYNEPHRINE) ONE (18:30)
[2019-11-13] MEDS ORDERED: SEVOFLURANE 15 MIN GAS INH ONE (18:30)
[2019-11-13] MEDS ORDERED: GLYCOPYRROLATE 0.2 MG/ML VIAL ONE (18:30)
[2019-11-13] MEDS ORDERED: NEOSTIGMINE METHYLSULFATE 1 MG/ML, 10 ML VIAL ONE (18:30)
[2019-11-13] MEDS ORDERED: MIDAZOLAM HCL 5 MG/ML VIAL (VERSED) IV ONE (18:30)
[2019-11-13] MEDS ORDERED: NS IRRIG SOLN 1000 ML IR ONE (18:30)
[2019-11-13] MEDS ORDERED: LR 1,000 ML IV.SOLN IV ONE (18:30)
[2019-11-13] MEDS ORDERED: ROCURONIUM BROMIDE 10 MG/ML (ZEMURON) ONE (18:30)
--- NOTE | 2019-11-13 19:00 | NUR ---
ENDORSEMENT PATIENT STILL OUT WILL ENDORSED TO NEXT SHIFT TO FOLLOW UP ONCE PATIENT RETURN FROM SURGERY
--- NOTE | 2019-11-13 19:15 | NUR ---
Pt arrived from PACU awake and alert. 4 laparoscopic abdominal sites dressings are dry and intact. No acute distress noted at this time. IV sites in RH and LFA are without any signs of infiltration. Skin is warm and dry to touch. No signs or symptoms of hypoglycemia or hyperglycemia noted. Call light is with pt and bed alarm is on. Pt was instructed to call for assistance before getting out of bed and pt verbalized understanding. Addendum: 11/13/19 at 2118 by Angelina Landa RN Pt was instructed to use IS 10X Q 1hr WA and pt verbalized understanding. Pt's IS usage is at 500ml.
--- NOTE | 2019-11-13 19:45 | NUR ---
Pt voided 350 clear yellowish urine in BSC. IVF is infusing well in . Fall and safety precautions are in place.
[2019-11-13 20:00] VITALS: BP_SYST 138
--- NOTE | 2019-11-13 20:08 | NUR ---
Dilaudid 2mg was given IV for c/o 10/10 abdominal pain. Pt was instructed not to get out of bed without calling for assistance if she feels dizzy or drowsy to prevent fall and injuries. Pt verbalized understanding. Call light is with pt and bed alarm is on. IVF is infusing well in . Lap sites abd dressings are dry and intact.
[2019-11-13] MEDS: NS IV SCH (20:09)
[2019-11-13] MEDS: GENTAMICIN SULFATE IV SCH (20:09)
--- NOTE | 2019-11-13 20:48 | NUR ---
Accucheck 107 and no Insulin coverage needed. Skin remains warm and dry to touch. IVF is infusing well in RH. Fall and safety precautions are in place.
--- NOTE | 2019-11-13 23:30 | NUR ---
Pt is awake and resting quietly in bed. No c/o pain or discomfort. Lap sites abdominal dressings are dry and intact. IVF is infusing well in RH. Fall and safety precautions are in place.
[2019-11-14 01:07] VITALS: BP_SYST 133
[2019-11-14] MEDS: CEFAZOLIN 2 GM IVPB PREMIX 50 ML IV SCH (02:21)
[2019-11-14] MEDS: PIPERACILLIN/TAZO 3.375/DEX-IS 50 ML IV SCH ×3 (06:17→18:11)
[2019-11-14] MEDS: D5NS 1,000 ML IV SCH ×2 (06:21→20:30)
--- NOTE | 2019-11-14 06:30 | NUR ---
Pt is awake and resting quietly in bed. All pt's needs were attended to. IVF is infusing well in RH. Fall and safety precautions are in place. Will endorse to day shift nurse.
[2019-11-14 07:13] LABS: BASOPHILS % (AUTO) 0.1 % (0.0-2.0); EOSINOPHILS % (AUTO) 0.1 % (0.0-4.0); HEMATOCRIT 25.3 % (36-48); HEMOGLOBIN 8.4 g/dL (12.0-16.0); LYMPHOCYTES # (AUTO) 1.2 K/uL (1.0-5.5); LYMPHOCYTES % (AUTO) 7.4 % (20.5-51.5); MEAN CORPUSCULAR HEMOGLOBIN 30 pg (27-31); MEAN CORPUSCULAR HGB CONC 33 % (32-36); MEAN CORPUSCULAR VOLUME 91 fL (79.0-98.0); MONOCYTES # (AUTO) 1.2 K/uL (0.0-1.0); MONOCYTES % (AUTO) 7.6 % (1.7-9.3); NEUTROPHILS # (AUTO) 13.8 K/uL (1.8-7.7); NEUTROPHILS % (AUTO) 84.8 % (40.0-70.0); PLATELET COUNT (AUTO) 181 K/uL (130-430); RED BLOOD CELL COUNT(AUTO) 2.78 MIL/uL (4.2-6.2); RED CELL DISTRIBUTION WIDTH 12.7 % (9.0-15.0); WHITE BLOOD COUNT (AUTO) 16.3 K/uL (4.8-10.8)
--- NOTE | 2019-11-14 07:21 | NUR ---
RN INITIAL NOTES RECEIVED PATIENT IN BED ALERT AWAKE AND NO DISTRESS PATIENT VERBALLY RESPONSIVE , PLAN OF CARE DISCUSSED WITH PATIENT , ENDORSED AMBULATES TO THE BR SHE ABLE TO URINATE
[2019-11-14 07:34] LABS: CALCIUM 7.7 mg/dL (8.4-11.0); CREATININE 0.54 mg/dL (0.55-1.30); POTASSIUM 3.3 mmol/L (3.5-5.1); TOTAL BILIRUBIN 0.7 mg/dL (0.0-1.0)
[2019-11-14 08:00] VITALS: BP_SYST 136
[2019-11-14] MEDS: POTASSIUM CHLORIDE 20 MEQ TAB.PRT.SR PO PRN (08:13)
[2019-11-14] MEDS: GENTAMICIN SULFATE IV SCH (08:13)
[2019-11-14] MEDS: NS IV SCH (08:13)
[2019-11-14] MEDS: ONDANSETRON HCL 4 MG/2 ML VIAL IVP PRN (08:13)
[2019-11-14] MEDS: HEPARIN SODIUM,PORCINE 5000 UNITS/ML VIAL SUBCUT SCH ×2 (08:16→21:03)
[2019-11-14] MEDS: metroNIDAZOLE 500 mg/NS 100 ML IV SCH (08:24)
--- NOTE | 2019-11-14 10:00 | NUR ---
ROUNDS PATIENT ABDOMINAL BINDER INTACT AWAITING FOR SURGEON TO COME SEE PATIENT
--- NOTE | 2019-11-14 12:30 | NUR ---
[id number] WITH PT PATIENT AMBULATES WITH PT TOLERATED WELL
[2019-11-14 12:36] VITALS: BP_SYST 125
--- NOTE | 2019-11-14 13:03 | NUR ---
Insurance Producer:Conduct a DCPA CARDIOVASCULAR SURGICAL TECH introduced self to pt.who was awake and resting in bed. Pt. stated she was ok. She was up for the interview. She stated she lives at home with her , Devendra who is employed. She was able to confirm the demographic info listed on the face sheet. Pt. stated she did not know the name of her PCP. CARDIOVASCULAR SURGICAL TECH saw that pt. was Medical Presumpt. so she offered pt. a list of medical providers. She can pick a PCP form this list. Pt. stated she know why she was admitted to the hospital. Pt. denied ever needing any psychological interventions. She stated she ambulates on her own. Pt. maintained eye contact throughout the interview. When asked, she stated she did not have any questions for CARDIOVASCULAR SURGICAL TECH. When asked, Pt. did state she wants to go home once she is discharged. CARDIOVASCULAR SURGICAL TECH will remain available as needed.
[2019-11-14 16:00] VITALS: BP_SYST 103
--- NOTE | 2019-11-14 16:00 | NUR ---
ROUNDS PATIENT IS NOT IN DISTRESS, PATIENT AMBULATES TO THE RESTROOM AND PAIN MEDS GIVEN
[2019-11-14] MEDS: HYDROmorphone 2 MG/ML VIAL IVP PRN (17:34)
--- NOTE | 2019-11-14 18:20 | NUR ---
ENDORSEMENT PER DTR SURGEON CAME SEEN WOUND .DRESSING DRY AND NO SIGN OF NEW BLEEDING, WILL CONT ATB ORDERED AND TOLERATED FLUIDS
[2019-11-14 19:00] VITALS: BP_SYST 121
[2019-11-14 20:00] VITALS: BP_SYST 121
[2019-11-15] VITALS: BP_SYST 115
[2019-11-15] MEDS: D5NS 1,000 ML IV SCH ×3 (01:15→16:17)
[2019-11-15] MEDS: PIPERACILLIN/TAZO 3.375/DEX-IS 50 ML IV SCH ×5 (01:15→23:43)
[2019-11-15 07:39] LABS: BASOPHILS % (AUTO) 0.1 % (0.0-2.0); EOSINOPHILS # (AUTO) 0.1 K/uL (0.0-0.4); EOSINOPHILS % (AUTO) 0.5 % (0.0-4.0); HEMATOCRIT 25.4 % (36-48); HEMOGLOBIN 8.6 g/dL (12.0-16.0); LYMPHOCYTES # (AUTO) 1.4 K/uL (1.0-5.5); MEAN CORPUSCULAR HEMOGLOBIN 31 pg (27-31); MEAN CORPUSCULAR HGB CONC 34 % (32-36); MEAN CORPUSCULAR VOLUME 90 fL (79.0-98.0); MONOCYTES # (AUTO) 1.4 K/uL (0.0-1.0); MONOCYTES % (AUTO) 8.1 % (1.7-9.3); NEUTROPHILS # (AUTO) 14.6 K/uL (1.8-7.7); NEUTROPHILS % (AUTO) 83.3 % (40.0-70.0); PLATELET COUNT (AUTO) 222 K/uL (130-430); RED BLOOD CELL COUNT(AUTO) 2.83 MIL/uL (4.2-6.2); RED CELL DISTRIBUTION WIDTH 12.4 % (9.0-15.0); WHITE BLOOD COUNT (AUTO) 17.5 K/uL (4.8-10.8)
--- NOTE | 2019-11-15 07:40 | NUR ---
OPENING NOTE Patient resting in the bed. No acute distress. Denied of pain. Skin warm and dry to touch. IV intact to RFA, no redness, no swelling, no drainage. ON D5 NS at 100ml/hr, infusing well. Discussed the safety issue, use call light when needs help, and plan of care, verbally understanding. Safety measure maintained. Call light within reached. Bed locked in low position, side rails up, bed alarm on. Will continue to monitor.
[2019-11-15 07:45] VITALS: BP_SYST 131
[2019-11-15 07:45] LABS: ANION GAP 6 (5-15); CALCIUM 7.8 mg/dL (8.4-11.0); CHLORIDE 103 mmol/L (98-107); CREATININE 0.51 mg/dL (0.55-1.30); GLUCOSE 136 mg/dL (70-99); POTASSIUM 3.2 mmol/L (3.5-5.1); SODIUM SERUM 135 mmol/L (136-145); UREA NITROGEN, BLOOD 7 mg/dL (8-21)
[2019-11-15 07:48] LABS: GENTAMICIN,TROUGH < 0.2 ug/mL (0.2-2.0); GFR AFRICAN AMERICAN 158 mL/min (>90)
--- NOTE | 2019-11-15 08:10 | NUR ---
BATHROOM Ambulated to bathroom in steady gait. Patient did pericare self. No acute distress. Safety measure maintained. Call light within reached. Continue to monitor.
[2019-11-15] MEDS: POTASSIUM CHLORIDE 20 MEQ TAB.PRT.SR PO PRN (09:03)
[2019-11-15] MEDS: HEPARIN SODIUM,PORCINE 5000 UNITS/ML VIAL SUBCUT SCH ×2 (09:04→20:38)
--- NOTE | 2019-11-15 10:22 | NUR ---
ROUND Patient resting in the bed with eye closed. No acute distress. IV intact, IVF infusing well. Safety measure maintained. Call light within reached. Continue to monitor.
[2019-11-15 12:00] VITALS: BP_SYST 132
[2019-11-15] MEDS: INSULIN LISPRO SLIDING SCALE 100 UNITS/ML VIAL (humaLOG) SUBCUT PRN ×2 (12:03→17:30)
--- NOTE | 2019-11-15 12:05 | NUR ---
[id number] Humalog insulin 4 units given per sliding scale as ordered.
--- NOTE | 2019-11-15 14:07 | NUR ---
Nutrition F/U (short note d/t high patient load) RD reviewed pt's current EMR including diet Hx, physician notes, nursing notes, pertinent labs/meds/procedures, care trends, and care activity. Current Diet Order: Full liquid x0 days Pt was seen resting in bed earlier today, breakfast tray less than 25% eaten. Pt reported nausea this morning and poor appetite. Pt is POD 2 s/p lap laz and lysis of adhesions 11/13/19. PO intake records reflect 63% average x4 meals per EMR. Pt is not yet meeting optimal nutritional needs. Encourage increase PO intakes. Current diet remains appropriate. Pt is at moderate nutritional risk; F/U within 3-5 days.
--- NOTE | 2019-11-15 15:20 | NUR ---
ROUND Patient resting in the bed with. No acute distress. IV intact, IVF infusing well. Safety measure maintained. Call light within reached. Bed locked in low position, side rails up. Continue to monitor.
[2019-11-15 16:09] VITALS: BP_SYST 136
--- NOTE | 2019-11-15 17:08 | NUR ---
SEEN AND EXAMINED BY JENA HART.
[2019-11-15] MEDS: MORPHINE 2 MG/ML INJ. SYRINGE IVP PRN (17:35)
[2019-11-15] MEDS: ONDANSETRON HCL 4 MG/2 ML VIAL IVP PRN (17:36)
--- NOTE | 2019-11-15 17:55 | NUR ---
UR=210 Humalog insulin 2 units given per sliding scale as ordered.
--- NOTE | 2019-11-15 18:50 | NUR ---
CLOSING NOTE Patient resting in the bed. No acute distress. PRN pain med given as needed with effective. Skin warm and dry to touch. IV intact to RFA, no redness, no swelling, no drainage. ON D5 NS at 100ml/hr, infusing well. Family at bedside. All needs met. Safety measure maintained. Call light within reached. Bed locked in low position, side rails up, bed alarm on. Will endorse to night nurse.
--- NOTE | 2019-11-15 19:25 | NUR ---
CHANGE OF SHIFT; pt. resting when received , family at bedside. no acute distress. S/P lap laz, abdominal binder intact. call light at bedside. will assess later.
[2019-11-15 20:30] VITALS: BP_SYST 135
--- NOTE | 2019-11-15 20:30 | NUR ---
NOTES: VS checked. IVF infusing via rt. arm , assisted to go restroom, ambulated. instructed on deep breathing and use of Incentive spirometry. checked dressing , 4 small dressing intact, noted bruising on her left side abdomen due to heparin subq. off sequential. 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 no discomfort at this time, with tolerable post op pain. instructed to call nurse for help or if she is in pain and verbalized understanding.
--- NOTE | 2019-11-15 21:30 | NUR ---
NOTES; BS checked 148, no sliding scale coverage. IS done, repositioned self for comfort. o room air, O2 sat 95%.
[2019-11-16 00:15] VITALS: BP_SYST 131
--- NOTE | 2019-11-16 00:15 | NUR ---
NOTES: pt. still awake, sitting at the edge of the bed, offered pain med, feeling ok at this time. Iv antibiotic due infused.
--- NOTE | 2019-11-16 02:45 | NUR ---
NOTES: pt. sleeping when checked. remains sinus rhythm. condition observed.
[2019-11-16] MEDS: D5NS 1,000 ML IV SCH (03:06)
[2019-11-16] MEDS: MORPHINE 2 MG/ML INJ. SYRINGE IVP PRN (03:10)
--- NOTE | 2019-11-16 03:10 | NUR ---
NOTES: pt. checked, noted to be restless, offered pain med, medicated fro c/o post op abdominal pain with IV Morphine. repositioned self, turn to sides. IVF patent.
--- NOTE | 2019-11-16 04:00 | NUR ---
NOTES: pt. rechecked, sleeping comfortably. continue to monitor.
--- NOTE | 2019-11-16 05:00 | NUR ---
NOTES; continue to monitor, sleeping after pain med given.
[2019-11-16] MEDS: PIPERACILLIN/TAZO 3.375/DEX-IS 50 ML IV SCH ×2 (05:51→12:12)
[2019-11-16] MEDS: INSULIN LISPRO SLIDING SCALE 100 UNITS/ML VIAL (humaLOG) SUBCUT PRN ×2 (06:19→12:17)
--- NOTE | 2019-11-16 06:48 | NUR ---
CLOSING NOTES; pt. still asleep, due IV antibiotic infused. main IVF @ 100 cc/hr. no complaints at this time. for further care and assist. will endorse to incoming shift. call light within reach.
--- NOTE | 2019-11-16 07:03 | NUR ---
Nutrition Update Tyler Scale 18 noted. Pt admitted for Acute Pancreatitis Diet: Full liquid BMI: 21.5 kg/m2 RD to follow per nutrition care standards.
--- NOTE | 2019-11-16 07:32 | NUR ---
OPENING NOTE Patient resting in the bed. No acute distress. Denied of pain at this time. Skin warm and dry to touch. IV intact to RFA, no redness, no swelling, no drainage. On D5 NS at 100ml/hr, infusing well. Discussed the safety issue, use call light when needs help, and plan of care, verbally understanding. Safety measure maintained. Call light within reached. Bed locked in low position, side rails up. Refused bed alarm, risk and benefit explained., verbally understanding. Will continue to monitor.
[2019-11-16 07:50] VITALS: BP_SYST 132
[2019-11-16 08:00] VITALS: BP_SYST 132
[2019-11-16] MEDS: HEPARIN SODIUM,PORCINE 5000 UNITS/ML VIAL SUBCUT SCH (08:24)
--- NOTE | 2019-11-16 08:42 | NUR ---
AMBULATING IN THE HALLWAY IN STEADY GAIT.
[2019-11-16 09:57] LABS: BASOPHILS % (AUTO) 0.2 % (0.0-2.0); EOSINOPHILS # (AUTO) 0.1 K/uL (0.0-0.4); EOSINOPHILS % (AUTO) 0.9 % (0.0-4.0); HEMATOCRIT 24.8 % (36-48); HEMOGLOBIN 8.5 g/dL (12.0-16.0); LYMPHOCYTES # (AUTO) 1.7 K/uL (1.0-5.5); LYMPHOCYTES % (AUTO) 11.1 % (20.5-51.5); MEAN CORPUSCULAR HEMOGLOBIN 31 pg (27-31); MEAN CORPUSCULAR HGB CONC 34 % (32-36); MEAN CORPUSCULAR VOLUME 90 fL (79.0-98.0); MONOCYTES # (AUTO) 1.4 K/uL (0.0-1.0); MONOCYTES % (AUTO) 8.9 % (1.7-9.3); NEUTROPHILS # (AUTO) 12.3 K/uL (1.8-7.7); NEUTROPHILS % (AUTO) 78.9 % (40.0-70.0); PLATELET COUNT (AUTO) 269 K/uL (130-430); RED BLOOD CELL COUNT(AUTO) 2.75 MIL/uL (4.2-6.2); RED CELL DISTRIBUTION WIDTH 12.3 % (9.0-15.0); WHITE BLOOD COUNT (AUTO) 15.6 K/uL (4.8-10.8)
[2019-11-16 10:07] LABS: CALCIUM 7.5 mg/dL (8.4-11.0); CREATININE 0.46 mg/dL (0.55-1.30); POTASSIUM 3.1 mmol/L (3.5-5.1)
[2019-11-16 12:00] VITALS: BP_SYST 132
--- NOTE | 2019-11-16 12:19 | NUR ---
AG=[id number] Humalog insulin 2 units given per sliding scale as ordered. Patient sitting in upright position, set up for lunch. Safety measure maintained. Call light within reached. Continue to monitor.
[2019-11-16] MEDS: POTASSIUM CHLORIDE 20 MEQ TAB.PRT.SR PO PRN (12:35)
[2019-11-16] MEDS: ONDANSETRON HCL 4 MG/2 ML VIAL IVP PRN (12:35)
[2019-11-16] MEDS ORDERED: AUG875 PO (13:11)
[2019-11-16] MEDS ORDERED: HYDR-4272 PO (13:11)
[2019-11-16] MEDS ORDERED: POTA20TA83 PO (13:11)
--- NOTE | 2019-11-16 14:20 | NUR ---
DAUGHTER AT BEDSIDE MAKE AWAKE THE DISCHARGE BUT STATED THAT SHE NEEDS TO WORK, WILL CALL ANOTHER FAMILY MEMBER TO PRINT BINDING WORKER.
[2019-11-16 16:00] VITALS: BP_SYST 141
[2019-11-16 16:24] VITALS: BP_SYST 141
--- NOTE | 2019-11-16 16:52 | NUR ---
CALLED [facility] REGARDING THE E-PRESCRIPTION Called [facility] pharmacy in [place], spoke with Rosalba regarding the e-prescription. Per Rosalba, the e-prescription not in the system. The name, dosage, route, and duration given as Woodrow Garza ordered, NPI and phone given. [facility] not accept by phone. Will give written prescription to the patient.
--- NOTE | 2019-11-16 17:25 | NUR ---
[facility], the patient's not 1960 in their record, verify with daughter,Isabella the is 1960. No insurance record, per Isabella that is an emergency insurance, Isabella talked to Rosalba via phone. The antibiotic covered by insurance but potassium chloride not covered, Isabella agree to pay for that. Insurance information given to Isabella.
--- NOTE | 2019-11-16 17:30 | NUR ---
WRONG BIRTHDAY ON THE CHART, CHARGE NURSE, GRAHAM MAKE AWAKE.
--- NOTE | 2019-11-16 17:50 | NUR ---
D/C Patient Patient given medication reconciliation form and D/C instructions. Exit Care provided. Patient verbalized understanding. MD discussed with patient the results and treatment provided. Ambulatory with steady gait for discharge to home. Patient in stable condition, ID band removed. IV catheter removed, intact and dressing applied, no active bleeding. Rx of [place] given. E-prescription will picker/puller in [facility]. Patient educated on pain management. All belongings sent with patient.
== END 2019-11-16 17:50 | disposition home or self-care (01) | DRG 710 ==
LOC: SED 15:01 → SMU 16:57 → STU 17:30 → SMU 11-16 10:18
PROVIDERS: ADMIT General Practice; ATTEND General Practice
PROC: 0FT44ZZ Resection of Gallbladder, Percutaneous Endoscopic Approach (ICD-10-PCS; principal; 2019-11-13 17:30)
DX: A41.9 Sepsis, unspecified organism (principal); N17.0 Acute kidney failure with tubular necrosis; E87.2 Acidosis; K85.10 Biliary acute pancreatitis without necrosis or infection; K80.00 Calculus of gallbladder with acute cholecystitis without obstruction; N39.0 Urinary tract infection, site not specified; E87.6 Hypokalemia; E86.0 Dehydration; I10 Essential (primary) hypertension; K29.70 Gastritis, unspecified, without bleeding; D64.9 Anemia, unspecified; R65.20 Severe sepsis without septic shock; K52.9 Noninfective gastroenteritis and colitis, unspecified; B96.20 Unspecified Escherichia coli [E. coli] as the cause of diseases classified elsewhere; Z79.899 Other long term (current) drug therapy
CPT/HCPCS: 36415; 70450-TC; 71045; 74181; 80048; 80053; 80076; 80170-TC; 80307; 81000-TC; 82150-TC; 82550-TC; 82962; 83036; 83605; 83690-TC; 83735-TC; 83880; 84484; 85007; 85025; 85027; 85610-TC; 85730-TC; 87040-TC; 87081; 87086; 87186-TC; 88304; 93005; 94010; 96361; 96365; 96375; 99291; 99292; C1727; G0378; G0480; G0481; G0482; J0690; J1170; J1580; J1644; J2250; J2270; J2370; J2405; J2543; J2704; J2710; J3010; J3480; J3490; J7030; J7042; J7050; J7060; J7120